=== PATIENT | female | born 1965 | race Caucasian/White ===

== ENCOUNTER 2018-09-27 12:23 | Emergency (ER) | payer OTHER ==
[2018-09-27] MEDS ORDERED: 0.9 % SODIUM CHLORIDE 10 ML DISP.SYRIN. IV ONE (12:45)
[2018-09-27] MEDS ORDERED: ONDANSETRON PF 4 MG/2 ML VIAL. IV ONE (12:45)
[2018-09-27] MEDS ORDERED: hydrALAZINE 20 MG/ML VIAL. IV ONE (12:45)
--- NOTE | 2018-09-27 12:47 | PHYS DOC ---
Past History Past Medical History: No Pertinent History Past Surgical History: Alcohol Use: None Drug Use: None Adult General Chief Complaint Chief Complaint: HEADACHE HPI HPI Patient is a 52 year old female who presents with complaint of sudden onset severe headache. The patient states that her symptoms started approximately 11:30 this morning. States that she suddenly began to have sharp severe headache that came on while at rest. States that the pain is constant and currently ranks it as 10 out of 10 on the pain scale. Denies any significant past medical history and is not currently on any medications. Noted to be significantly hypertensive initially at triage and notes that she is not on any medications for blood pressure has had no previous diagnosis of tension in the past. Has had associated nausea. Denies fever, vomiting, or loose stools. Review of Systems Review of Systems Constitutional: Denies fever or chills [] Eyes: Denies change in visual acuity, redness, or eye pain [] HENT: Denies nasal congestion or sore throat [] Respiratory: Denies cough or shortness of breath [] Cardiovascular: Denies chest pain or edema[] GI: Nausea, denies abdominal pain, vomiting, bloody stools or diarrhea [] : Denies dysuria or hematuria [] Musculoskeletal: Denies back pain or joint pain [] Integument: Denies rash or skin lesions [] Neurologic: Headache, denies focal weakness or sensory changes [] All other systems were reviewed and found to be within normal limits, except as documented in this note. Current Medications Current Medications Current Medications Medications (Trade) Dose Ordered Sig/Marcela Start Time Stop Time Status Last Admin Dose Admin Hydralazine HCl (Apresoline) 10 mg 1X ONCE 09/27/18 12:45 09/27/18 12:46 Sodium Chloride (Normal Saline Flush) 10 ml 1X ONCE 09/27/18 12:45 09/27/18 12:46 Allergies Allergies Allergies Coded Allergies Type Severity Reaction Last Updated Verified No Known Drug Allergies 09/27/18 No Physical Exam Physical Exam Constitutional: Alert, afebrile, appears in severe pain. [] HENT: Normocephalic, atraumatic, bilateral external ears normal, oropharynx moist, no oral exudates, nose normal. [] Eyes: PERRLA, EOMI, conjunctiva normal, no discharge. [] Neck: Normal range of motion, no tenderness, supple, no stridor. [] Cardiovascular:Heart rate regular rhythm, no murmur [] Lungs & Thorax: Bilateral breath sounds clear to auscultation [] Abdomen: Bowel sounds normal, soft, no tenderness, no masses, no pulsatile masses. [] Skin: Warm, dry, no erythema, no rash. [] Back: No tenderness, no CVA tenderness. [] Extremities: No tenderness, no cyanosis, no clubbing, ROM intact, no edema. [] Neurologic: Alert and oriented X 3, normal motor function, normal sensory function, no focal deficits noted. [] Current Patient Data Vital Signs Vital Signs Date Time Temp Pulse Resp B/P (MAP) Pulse Ox O2 Delivery O2 Flow Rate FiO2 09/27/18 12:27 97.8 80 18 97 Room Air Lab Results Laboratory Tests Test 09/27/18 13:15 White Blood Count 8.3 x10^3/uL Red Blood Count 4.28 x10^6/uL Hemoglobin 14.3 g/dL Hematocrit 41.7 % Mean Corpuscular Volume 98 fL Mean Corpuscular Hemoglobin 34 pg Mean Corpuscular Hemoglobin Concent 34 g/dL Red Cell Distribution Width 12.7 % Platelet Count 260 x10^3/uL Neutrophils (%) (Auto) 62 % Lymphocytes (%) (Auto) 26 % Monocytes (%) (Auto) 11 % Eosinophils (%) (Auto) 1 % Basophils (%) (Auto) 1 % Neutrophils # (Auto) 5.2 x10^3uL Lymphocytes # (Auto) 2.1 x10^3/uL Monocytes # (Auto) 0.9 x10^3/uL Eosinophils # (Auto) 0.1 x10^3/uL Basophils # (Auto) 0.0 x10^3/uL Sodium Level 141 mmol/L Potassium Level 3.8 mmol/L Chloride Level 105 mmol/L Carbon Dioxide Level 24 mmol/L Anion Gap 12 Blood Urea Nitrogen 10 mg/dL Creatinine 0.8 mg/dL Estimated GFR (Cockcroft-Gault) 75.0 BUN/Creatinine Ratio 13 Glucose Level 101 mg/dL Calcium Level 9.0 mg/dL Total Bilirubin 0.3 mg/dL Aspartate Amino Transf (AST/SGOT) 22 U/L Alanine Aminotransferase (ALT/SGPT) 32 U/L Alkaline Phosphatase 56 U/L Troponin I Quantitative < 0.017 ng/mL ZL-Rna-G-Type Natriuretic Peptide 400 pg/mL Total Protein 7.0 g/dL Albumin 3.9 g/dL Albumin/Globulin Ratio 1.3 Current Medications Medications (Trade) Dose Ordered Sig/Marcela Route PRN Reason Start Time Stop Time Status Last Admin Dose Admin Sodium Chloride (Normal Saline Flush) 10 ml 1X ONCE IV 09/27/18 12:45 09/27/18 12:46 DC 09/27/18 14:09 Hydralazine HCl (Apresoline) 10 mg 1X ONCE IV 09/27/18 12:45 09/27/18 12:46 DC 09/27/18 12:57 Fentanyl Citrate (Fentanyl 2ml Vial) 50 mcg PRN Q15MIN PRN IV PAIN GREATER THAN 3/10 09/27/18 12:45 09/28/18 12:44 09/27/18 12:57 Ondansetron HCl (Zofran) 4 mg 1X ONCE IV 09/27/18 12:45 09/27/18 12:46 DC 09/27/18 12:57 Ketorolac Tromethamine (Toradol 30mg Vial) 30 mg 1X ONCE IV 09/27/18 15:00 09/27/18 15:01 DC EKG EKG Not performed[] Radiology/Procedures Radiology/[place] [address] IMAGING REPORT Signed PATIENT: AMBER VARGAS ACCOUNT: [id number] : 1965 LOCATION: ER AGE: 52 SEX: F EXAM STATUS: REG ER ORD. PHYSICIAN: CHEL SPARKS MD REASON: severe headache PROCEDURE: CT HEAD WO CONTRAST CT HEAD WO CONTRAST Clinical indications: Severe headache. COMPARISON: None available. Technique: Noncontrast axial cross sectional scanning of the head was performed. PQRS compliance Statement One or more of the following individualized dose reduction techniques were utilized for this study: 1. Automated exposure control 2. Adjustment of the mA and/or kV according to patient size 3. Use of iterative reconstruction technique Findings: No acute intracranial hemorrhage or midline shift or mass-effect or hydrocephalus or extra-axial fluid collection is seen. No focal hypodense area or sulci effacement is seen to indicate an acute infarct or edema radiographically. No skull fracture or pneumocephalus is seen. No opacification of the mastoid sinuses or the paranasal sinuses is seen. The maxillary sinuses are not seen in this study. Impression: No acute intracranial abnormality is seen. Electronically signed by: Dallas Chow MD (09/27/2018 1:16 PM) [facility] DICTATED AND SIGNED BY: DALLAS CHOW MD DATE: 09/27/18 [id number] CC: CHEL SPARKS MD; CHEL UGARTE MD ~ [] Course & Med Decision Making Course & Med Decision Making Pertinent Labs and Imaging studies reviewed. (See chart for details) The patient was given fentanyl and hydralazine in the emergency department. Patient's blood pressure improved after administration of IV hydralazine. On reevaluation, patient states that her headache has resolved and she is feeling much better. Blood pressure is 133/67. Cause of patient's symptoms is unclear at this time. The patient was offered admission for observation to the hospital but declined. Has no previous history of hypertension. Patient states that she would like to go home and follow-up with her primary at this time. She does not want any further medications. Recommended that the patient follow-up in the next 1-2 days with primary doctor for reevaluation. Advised return to [facility] department for any worsening symptoms. Patient was understanding and in agreement with treatment plan.[] Dragon Disclaimer Dragon Disclaimer This electronic medical record was generated, in whole or in part, using a voice recognition dictation system. Departure Departure: Impression: Primary Impression: Headache Additional Impression: Elevated blood pressure reading Disposition: 01 HOME, SELF-CARE Condition: IMPROVED Referrals: CHEL UGARTE MD (PCP) Patient Instructions: General Headache Without Cause, How to Take Your Blood Pressure, Gacz-je-Hlct Additional Instructions: That her symptoms have resolved, it is unclear what caused her symptoms at today's visit. His recommended a follow-up with your primary doctor in the next 1-2 days for reevaluation. Please return immediately to the emergency department for any worsening or severe symptoms. Problem Qualifiers Primary Impression: Headache Headache type: unspecified Headache chronicity pattern: acute headache Intractability: not intractable Qualified Codes: R51 - Headache CHEL SPARKS MD Sep 27, 2018 12:47
--- NOTE | 2018-09-27 13:19 | RAD ---
CT HEAD WO CONTRAST Clinical indications: Severe headache. COMPARISON: None available. Technique: Noncontrast axial cross sectional scanning of the head was performed. PQRS compliance Statement One or more of the following individualized dose reduction techniques were utilized for this study: 1. Automated exposure control 2. Adjustment of the mA and/or kV according to patient size 3. Use of iterative reconstruction technique Findings: No acute intracranial hemorrhage or midline shift or mass-effect or hydrocephalus or extra-axial fluid collection is seen. No focal hypodense area or sulci effacement is seen to indicate an acute infarct or edema radiographically. No skull fracture or pneumocephalus is seen. No opacification of the mastoid sinuses or the paranasal sinuses is seen. The maxillary sinuses are not seen in this study. Impression: No acute intracranial abnormality is seen. Electronically signed by: Mathew Chow MD (09/27/2018 1:16 PM) [facility]
[2018-09-27 13:32] LABS: BASO % 1 % (0-3); EOS # 0.1 x10^3/uL (0.0-0.7); EOS % 1 % (0-3); HEMATOCRIT 41.7 % (36.0-47.0); HEMOGLOBIN 14.3 g/dL (12.0-15.5); LYMPH # 2.1 x10^3/uL (1.0-4.8); LYMPH % 26 % (24-48); MEAN CORPUSCULAR HEMOGLOBIN 34 pg (25-35); MEAN CORPUSCULAR HGB CONC 34 g/dL (31-37); MEAN CORPUSCULAR VOLUME 98 fL (79-100); MONO # 0.9 x10^3/uL (0.0-1.1); MONO % 11 % (0-9); NEUT # 5.2 x10^3uL (1.8-7.7); NEUT % 62 % (31-73); PLATELET COUNT 260 x10^3/uL (140-400); RED BLOOD COUNT 4.28 x10^6/uL (3.50-5.40); RED CELL DISTRIBUTION WIDTH 12.7 % (11.5-14.5); WHITE BLOOD COUNT 8.3 x10^3/uL (4.0-11.0)
[2018-09-27 13:58] LABS: ALBUMIN 3.9 g/dL (3.4-5.0); ALBUMIN/GLOBULIN RATIO 1.3 (1.0-1.7); CREATININE 0.8 mg/dL (0.6-1.0); POTASSIUM 3.8 mmol/L (3.5-5.1); TOTAL BILIRUBIN 0.3 mg/dL (0.2-1.0)
[2018-09-27] MEDS ORDERED: KETOROLAC 30 MG/ML VIAL. IV ONE (15:00)
[2018-09-27 15:10] VITALS: BP 138/67
== END 2018-09-27 15:45 | disposition home or self-care (01) ==
LOC: ER 12:23
DX: R51 Headache (principal); R03.0 Elevated blood-pressure reading, without diagnosis of hypertension
CPT/HCPCS: 36415; 70450; 80053; 83880; 84484; 85025; 96374; 96375; 99285; J0360; J2405; J3010